=== PATIENT | male | born 1935 | race Caucasian/White ===

== ENCOUNTER 2016-09-08 10:17 | Inpatient (IN) ==
--- NOTE | 2016-09-07 22:08 | Discharge Summary ---
<Marilu Naqvi L - Last Filed: 09/07/16 22:06> - Discharge Diagnosis (1) Left rotator cuff tear arthropathy Priority: Primary Status: Acute (2) HTN (hypertension) Priority: Secondary Status: Acute Qualifiers: Hypertension type: essential hypertension Qualified Code(s): I10 - Essential (primary) hypertension - Discharge Medications Home Medications: OxyCODONE Immed Rel [Roxicodone 5 MG] 5 - 10 mg PO Q6HR PRN #40 tablet 09/07/16 [Rx] Albuterol Sulfate [Albuterol Inhaler] 2 puff IH Q6HR PRN 09/08/16 [History] Allopurinol [Zyloprim 100 MG] 100 mg PO DAILY 09/08/16 [History] Aspirin 325 mg PO DAILY 09/08/16 [History] Cholecalciferol (D-3) [Vitamin D] 1,000 unit PO DAILY 09/08/16 [History] Cyanocobalamin (Vitamin B-12) [Vitamin B12] 1,000 mcg PO DAILY 09/08/16 [History ] Escitalopram [Lexapro] 10 mg PO DAILY 09/08/16 [History] Gabapentin [Neurontin] 100 mg PO TID 09/08/16 [History] HYDROcodone/Acet 10/325 mg [[place] 10-325 mg] 1 tab PO Q6HR PRN 09/08/16 [History ] Losartan [Cozaar] 25 mg PO DAILY 09/08/16 [History] Multivits,Ca,Min/Iron/FA/Lycop [Centrum Men's Tablet] 1 tab PO DAILY 09/08/16 [ History] Naproxen [Naprosyn] 500 mg PO BID 09/08/16 [History] Nitroglycerin [Nitrostat] 0.4 mg SL AD PRN 09/08/16 [History] Potassium Chloride [Klor-Con 10] 10 meq PO BID 09/08/16 [History] Simvastatin [Zocor] 10 mg PO QPM 09/08/16 [History] Allergies/Adverse Reactions: Allergies meperidine [From Demerol] Adverse Reaction (Verified 09/08/16 10:51) Hallucinating Primary care physician: Chandu Sams - Patient Status Disposition: Home, Self-Care Condition: Good - Discharge Instructions Follow Up With: Chandu Sams DO [Primary Care Provider] - - Hospital Course Hospital course: Mr. Agrawal is a 80 year old male - Time Spent with Patient Total time spent providing and/or coordinating discharge services: <Travon Pal - Last Filed: 09/09/16 06:29> Date of Encounter: 09/09/16 Time of Encounter: 06:29 - Discharge Diagnosis (1) Left rotator cuff tear arthropathy Priority: Primary Status: Acute (2) HTN (hypertension) Priority: Secondary Status: Acute Qualifiers: Hypertension type: essential hypertension Qualified Code(s): I10 - Essential (primary) hypertension Primary care physician: Chandu Sams - Patient Status Functional capacity at discharge: independent ambulation Overall status at discharge: patient is progressing back to baseline - Hospital Course Hospital course: Mr. Agrawal is a 80 year old male The patient had an uneventful postoperative course. They received antibiotics and physical therapy and were discharged in stable condition. There will follow -up in the office in 2 weeks. - Time Spent with Patient Total time spent providing and/or coordinating discharge services:
--- NOTE | 2016-09-08 11:21 | History & Physical Report ---
Date of Encounter: 09/08/16 Time of Encounter: 11:20 24 Hour HP Update - Instructions Instructions: If the History and Physical is less than 30 days old and was completed prior to A.M. admission and or procedure and has NOT been updated on calendar day of procedure please complete this update prior to performing procedure. - Update Patient reports changes in Medical Condition: No Changes in assessment/condition: No Changes in Medication: No Preop tests/diagnostics Reviewed: Yes Surgery Remains Indicated: Yes Consent for Planned Operative Procedure(s) Verified: Yes - Pre-Operative Checklist Preoperative Checklist Indicated: No Prophylactic Antibiotic Ordered: Yes Is VTE Prophylaxis Indicated?: Yes
[2016-09-08] MEDS ORDERED: CeFAZolin Pre 2,000 MG/100 ML 2,000 MG/100 ML BAG IVPB ONE (11:55)
[2016-09-08] MEDS ORDERED: Lidocaine -MPF 1% 2 ML VIAL ID ONE (11:55)
[2016-09-08] MEDS ORDERED: Ringers Solution, Lactated 1,000 ML IVC SCH ×2 (12:00→17:10)
[2016-09-08] MEDS ORDERED: Famotidine 20 MG/2 ML VIAL IVP ONE (12:05)
[2016-09-08] MEDS ORDERED: Albuterol 2.5 MG/3 ML NEBULIZER IH ONE ×2 (12:24→15:40)
--- NOTE | 2016-09-08 12:24 | Anesthesia Evaluation PreOp ---
Date of Encounter: 09/08/16 Time of Encounter: 12:20 - Past History Planned Operation: Left Total Shoulder Replacement Reverse Ball Cardiac History: HTN, Hyperlipidemia Pulmonary History: Former smoker, COPD REGIONAL ACCOUNT EXECUTIVE History: Denies Any Significant HX Other Medical History: Renal (CKD) Anesthesia History: No Prior Anesthetic Complications Alcohol Use: none Drug use: none Medications and Allergies OxyCODONE Immed Rel [Roxicodone 5 MG] 5 - 10 mg PO Q6HR PRN #40 tablet 09/07/16 [Rx] Albuterol Sulfate [Albuterol Inhaler] 2 puff IH Q6HR PRN 09/08/16 [History] Allopurinol [Zyloprim 100 MG] 100 mg PO DAILY 09/08/16 [History] Aspirin 325 mg PO DAILY 09/08/16 [History] Cholecalciferol (D-3) [Vitamin D] 1,000 unit PO DAILY 09/08/16 [History] Cyanocobalamin (Vitamin B-12) [Vitamin B12] 1,000 mcg PO DAILY 09/08/16 [History ] Escitalopram [Lexapro] 10 mg PO DAILY 09/08/16 [History] Gabapentin [Neurontin] 100 mg PO TID 09/08/16 [History] HYDROcodone/Acet 10/325 mg [[place] 10-325 mg] 1 tab PO Q6HR PRN 09/08/16 [History ] Losartan [Cozaar] 25 mg PO DAILY 09/08/16 [History] Multivits,Ca,Min/Iron/FA/Lycop [Centrum Men's Tablet] 1 tab PO DAILY 09/08/16 [ History] Naproxen [Naprosyn] 500 mg PO BID 09/08/16 [History] Nitroglycerin [Nitrostat] 0.4 mg SL AD PRN 09/08/16 [History] Potassium Chloride [Klor-Con 10] 10 meq PO BID 09/08/16 [History] Simvastatin [Zocor] 10 mg PO QPM 09/08/16 [History] Allergies meperidine [From Demerol] Adverse Reaction (Verified 09/08/16 10:51) Hallucinating - Meds/Allergy Pre-op Review Medications Reviewed: Yes Allergies Reviewed: Yes Beta Blockers on Current Med List: No Anesthesia Results - Labs Laboratory Tests 08/27/16 08/27/16 11:25 11:35 Hgb 14.1 Hct 43.6 Plt Count 249 Sodium 141 Potassium 4.6 H BUN 32 H Creatinine 1.57 H - Imaging EKG: report reviewed (Sinus Trevor First Degree Block) Anesthesia Exam O2 Sat Height 1.75 m Height 1.75 m Height 1.75 m Weight 101.605 kg Weight 101.605 kg Weight 101.605 kg O2 Sat by Pulse Oximetry 94 Vital Signs Temp Pulse Resp BP Pulse Ox 97.6 F 49 18 185/84 94 L 09/08/16 10:47 09/08/16 10:47 09/08/16 10:47 09/08/16 10:47 09/08/16 10:47 Height: 5'11 Weight: 223 lbs NPO (# of Hours): MN Pain Scale: 0 - HEENT Pupil (Motor): Pupils equal, EOMI Mallampati: III Denture Type: Upper: Complete Oral Opening: Less than or equal to 3 - REGIONAL ACCOUNT EXECUTIVE LOC: Oriented REGIONAL ACCOUNT EXECUTIVE Motor: Normal RUE, Normal LUE, Normal RLE, Normal LLE, Normal Face REGIONAL ACCOUNT EXECUTIVE Sensory: Normal: RUE, LUE, RLE, LLE, Face - Cardiac Rhythm: Regular Murmur: None JVD: No Carotid Bruit: No - Pulmonary Breath Sounds: bilateral Clear Respiratory Effort: Symmetrical Anesthesia Assess/Plan ASA Score: 3 (HTN COPD) Modified [place] Scale for Level of Consciousness: Cooperative, oriented, and tranquil Anesthetic Plan: General, Regional Monitoring Plan: Standard Monitors Recovery Plan: PACU (Discussed GA and RA, agrees to proceed)
[2016-09-08] MEDS ORDERED: *HR* FentaNYL (PF) 100 MCG/2 ML VIAL ONE (13:20)
[2016-09-08] MEDS ORDERED: *HR* Propofol 200 MG/20 ML VIAL IVP ONE (13:20)
[2016-09-08] MEDS ORDERED: *HR* Midazolam HCl 2 MG/2 ML VIAL ONE (13:20)
[2016-09-08] MEDS ORDERED: Dexamethasone 4 MG/ML VIAL ONE (13:21)
[2016-09-08] MEDS ORDERED: Lidocaine -MPF 2% 2 ML VIAL ONE (13:21)
[2016-09-08] MEDS ORDERED: Lidocaine -MPF 4% 5 ML AMPUL ONE (13:21)
[2016-09-08] MEDS ORDERED: Ondansetron 4 MG/2 ML VIAL ONE (13:21)
[2016-09-08] MEDS ORDERED: *HR* Rocuronium Bromide 50 MG/5 ML VIAL ONE (13:21)
[2016-09-08] MEDS ORDERED: *HR* Succinylcholine 200 MG/10 ML VIAL IVP ONE (13:21)
[2016-09-08] MEDS ORDERED: ROPIVACAINE HCL/PF 0.5% 30 ML VIAL ONE (14:01)
[2016-09-08] MEDS ORDERED: Bupivacaine/Clonidine Syringe 1 EACH SYRINGE ONE (14:02)
--- NOTE | 2016-09-08 14:19 | Anesthesia Procedures ---
Date of Encounter: 09/08/16 Time of Encounter: 14:17 Procedures: Anesthesia - Nerve Block Procedure Date: 09/08/16 Time: 14:17 Allergies/Adv Reactions: Allergies meperidine [From Demerol] Adverse Reaction (Verified 09/08/16 10:51) Hallucinating Pre-op Diagnosis: left rotator cuff arthropathy Surgical Procedure: left total shoulder reverse ball Checklist: Correct Patient Identifier, Correct procedure, History checked Correct side: Left Blood Thinner: No Monitor Applied: EKG, BP, Pulse Oximetry Supplemental Oxygen via Nasal Cannula (L/min): 2 Sedation: Fentanyl (mcg): 100 Indication: Post Op Analgesia Block Type: Supraclavicular Catheter placed: No Sterile Technique: Yes Ultrasound used: Yes Anatomy identified: Yes Visual spread of Local: Yes Neuro Stimulation: No Blood on Needle Aspiration: No Smooth Injection of Local: Yes Pain with Injection of Local: No Prep: Chlorhexadine Needle: 22 x 50 mm Stimuplex Local: 0.25% Bupivicaine w/Clonidine 20 mcg/cc (10cc), Ropivacaine (0.5% 20cc) Volume (cc): 30 Number of Attempts: 1 Complications: None/effective block
[2016-09-08] MEDS ORDERED: EPHEDrine 50 MG/ML VIAL ONE (14:58)
[2016-09-08] MEDS ORDERED: *HR* HYDROmorphone (PF) 1 MG/ML SYRINGE IVP PRN (15:12)
--- NOTE | 2016-09-08 15:20 | Orthopedic Operative Note ---
Date of procedure: 09/08/16 Pre-op diagnosis: Left shoulder cuff tear arthropathy Post-op diagnosis: same Procedure: Procedure: Left Total Shoulder Replacment Reverse, biceps tenodesis Estimated blood loss: 100 cc Hardware:Arthrex large glenoid baseplate, 2 4.5 screws. 1 6.5 screw, 42 lateral glenosphere, 12 humeral stem, 9 metal 3 Nichelle Exam Under anesthesia: Restricted motion all planes Procedural Notes: Ray for arthritic changes humeral head and glenoid socket tear supraspinatus tendon Operative procedure: The patient was brought to the operating room and placed on the operating room table. After general anesthesia was administered the operative shoulder was examined. Findings were noted. The patient was placed in the modified beachchair position. All pressure points were padded appropriately. And the head was stabilized in the neutral position. The operative extremity was prepped and draped in the sterile surgical fashion. The patient received IV antibiotics prior to skin incision. A standard deltopectoral approach was made to the operative shoulder. Incision was made to the skin and subcutaneous tissue,hemo stasis was obtained with Bovie cautery. Using careful blunt dissection the cephalic vein was identified and mobilized medially. The deltopectoral interval was developed and the clavipectoral fascia was incised. The subscap was released off the lesser tuberosity and tagged with #2 FiberWire suture. The humerus was dislocated patient noted to have a tear supraspinatus tendon, also 4 arthritic changes humeral head and the humeral cut was made along the anatomic neck. Anterior and posterior Bankart retractors were placed to expose the glenoid. Patient noted to have grade 4 arthritic changes of the glenoid socket. The glenoid guide was seated and the centering hole was made. It was reamed with the appropriate reamer. The large baseplate was seated and secured with (2) 4.5 screws and one 6.5 screw. The baseplate was irrigated and dried and the 42 lateral Glenosphere was seated and secured with the Emrcado taper. The Mercado taper was tested and found to be secure the humerus was redislocated and prepared with the diaphyseal reamers, followed by a broaching process up to the appropriate size 12 in the patient's anatomic version. The metaphyseal reamer was then utilized. Trial reduction found the shoulder to be relocatable. Trial components were removed and drill holes were placed in the lesser tuberosity. They were filled with #5 FiberWire suture incorporating the biceps tendon. These sutures were used for a biceps tenodesis the subscap was irrepairable. The appropriate 12 stem was impacted in place in the patient's anatomic version. Trial reduction found the shoulder to be relocatable and stable with the appropriate 9 metal, 3 Nichelle Trial component was removed and the real 9 metal 3 Nichelle was seated and secured the shoulder was reduced. The shoulder had excellent motion and excellent stability and no evidence of dislocation. The deep tissue was irrigated with pulse irrigation. The biceps was tenodesed. The deltopectoral interval was closed with a running #1 PDS suture, subcutaneous tissue was irrigated and closed with 0 PDS suture, the skin was closed with Dermabond. The patient was placed in a sterile dressing, abduction brace and extubated. The patient was then transferred to the recovery room in stable condition. Anesthesia: JUAQUIN Surgeon: Travon Pal Aircraft Delivery Checker: Marilu Naqvi Condition: stable Disposition: PACU
[2016-09-08] MEDS ORDERED: Albuterol 2.5 MG/3 ML NEBULIZER ONE (15:43)
--- NOTE | 2016-09-08 16:21 | Anesthesia Evaluation Post Op ---
Date of Encounter: 09/08/16 Time of Encounter: 16:10 - Vital Signs Vital Signs: Vital Signs/O2 Sat/Glucose, Most Current Temp Pulse Resp BP Pulse Ox 09/08/16 16:04 97.3 F L 50 20 151/83 96 09/08/16 15:55 50 20 141/83 95 09/08/16 15:45 51 20 149/93 96 09/08/16 15:40 52 16 157/79 94 L 09/08/16 15:35 97.0 F L 53 14 140/82 95 09/08/16 14:19 51 16 169/86 94 L 09/08/16 14:17 50 16 171/110 93 L 09/08/16 14:00 49 16 165/80 94 L - Lungs Lungs: Clear Ascult./Percussion - Airway Airway: Non-obstructed - Cardiovascular Regular Rate - Mental Status Mental Status: Alert & Oriented, Answers Appropriately - Pain Pain Scale: 0 - Nausea Vomiting Nausea Vomiting: Not Present - Hydration Hydration: Ice chips - Discharge PostOp Status: Transfer Patient to floor
[2016-09-08 16:33] LABS: Hematocrit 44.4 % (37.5-50.1); Hemoglobin 14.8 g/dL (12.9-16.9)
[2016-09-08] MEDS ORDERED: MOM Conc 10 ML UD.LIQ PO PRN (17:10)
[2016-09-08] MEDS ORDERED: Temazepam 15 MG CAPSULE PO PRN (17:10)
[2016-09-08] MEDS ORDERED: Sennosides 8.6 MG TABLET PO PRN (17:10)
[2016-09-08] MEDS ORDERED: Ondansetron 4 MG/2 ML VIAL IVP PRN (17:10)
[2016-09-08] MEDS ORDERED: Nitroglycerin 0.4 MG TAB.SUBL SL PRN (17:10)
[2016-09-08] MEDS ORDERED: Naloxone 0.4 MG/ML INJ IVP PRN (17:10)
[2016-09-08] MEDS ORDERED: Acetaminophen 325 MG TABLET PO PRN (17:10)
[2016-09-08] MEDS ORDERED: *HR* OxyCODONE Immed Rel 5 MG TABLET PO PRN (17:10)
[2016-09-08] MEDS: Gabapentin 100 MG CAPSULE PO SCH ×2 (17:59→20:06)
[2016-09-08] MEDS: *HR* Enoxaparin 30 MG/0.3 ML SYRINGE SQ SCH (17:59)
[2016-09-08] MEDS ORDERED: *HR* Enoxaparin 30 MG/0.3 ML SYRINGE SQ SCH (18:00)
[2016-09-09] MEDS: ceFAZolin 2,000 MG in D5% in Water 100 ML IVPB SCH ×2 (00:48→06:02)
[2016-09-09 05:55] LABS: Hematocrit 40.9 % (37.5-50.1); Hemoglobin 13.3 g/dL (12.9-16.9)
[2016-09-09] MEDS: *HR* Enoxaparin 30 MG/0.3 ML SYRINGE SQ SCH ×2 (06:01→18:18)
--- NOTE | 2016-09-09 06:30 | Orthopedics Progress Note ---
Date of Encounter: 09/09/16 Time of Encounter: 06:29 - Assessment and Plan (1) Left rotator cuff tear arthropathy Current Visit: Yes Status: Acute (2) HTN (hypertension) Current Visit: Yes Status: Acute Qualifiers: Hypertension type: essential hypertension Qualified Code(s): I10 - Essential (primary) hypertension Subjective Interval history: Patient was seen this morning doing well without complaints. Afebrile vital signs stable. Operative extremity: Neurovascularly intact Dressing clean dry and intact Calves nontender Assessment and plan: Continue with postoperative care Discharge today Objective Vital signs: Vital Signs Temp Pulse Resp BP Pulse Ox 09/09/16 04:34 97.6 F 49 19 117/66 95 09/09/16 00:16 98.6 F 53 14 121/66 94 L 09/08/16 19:20 56 16 166/76 91 L 09/08/16 18:05 52 16 146/67 92 L 09/08/16 17:35 52 16 147/68 93 L 09/08/16 17:23 97.3 F L 51 15 153/82 91 L 09/08/16 16:04 97.3 F L 50 20 151/83 96 09/08/16 15:55 50 20 141/83 95 09/08/16 15:45 51 20 149/93 96 09/08/16 15:40 52 16 157/79 94 L 09/08/16 15:35 97.0 F L 53 14 140/82 95 09/08/16 14:19 51 16 169/86 94 L 09/08/16 14:17 50 16 171/110 93 L 09/08/16 14:00 49 16 165/80 94 L 09/08/16 10:47 97.6 F 49 18 185/84 94 L Intake and Output 09/08/16 09/08/16 09/09/16 15:59 23:59 07:59 Intake Total 100 / 100 240 / 240 300 / 300 Output Total 100 / 100 425 / 425 700 / 700 Balance 0 / 0 -185 / -185 -400 / -400 Intake: IV Fluids 100 / 100 100 / 100 Ancef 2,000 MG In 100 / 100 Dextrose 5% 100 ML @ 200 mls/hr IVPB Q8H [facility] Rx#: [id number] Ancef Premix 2,000 MG/100 100 / 100 ML 2,000 mg In 100 ml @ 200 mls/hr IVPB PREOP ONE Rx#:[id number] Oral 240 / 240 200 / 200 Output: Urine 425 / 425 700 / 700 Estimated Blood Loss 100 / 100 Other: Weight 101.605 kg - Labs CBC & BMP: 09/09/16 05:30 - VTE Documentation of Mechanical Device: Venous foot pump, device Consult Discharge Plan - Plan Referrals: Chandu Sams DO [Primary Care Provider] -
[2016-09-09] MEDS: Gabapentin 100 MG CAPSULE PO SCH ×3 (08:59→20:22)
[2016-09-09] MEDS: Cholecalciferol (D-3) 1,000 UNIT TABLET PO SCH (08:59)
[2016-09-09] MEDS: Cyanocobalamin (B-12) 1,000 MCG TABLET PO SCH (08:59)
[2016-09-09] MEDS: Multivit/Ca/Min/Fe/FA 1 TAB TABLET PO SCH (08:59)
[2016-09-09] MEDS: Aspirin 325 MG TABLET PO SCH (09:00)
[2016-09-09] MEDS: *HR* OxyCODONE Immed Rel 5 MG TABLET PO PRN ×3 (09:02→18:19)
[2016-09-09] MEDS: *HR* HYDROmorphone (PF) 1 MG/ML SYRINGE IVP PRN ×2 (12:07→20:23)
[2016-09-10] MEDS: *HR* OxyCODONE Immed Rel 5 MG TABLET PO PRN ×2 (01:00→07:50)
[2016-09-10] MEDS: *HR* Enoxaparin 30 MG/0.3 ML SYRINGE SQ SCH ×2 (04:38→17:48)
[2016-09-10 05:44] LABS: Hematocrit 38.7 % (37.5-50.1); Hemoglobin 12.4 g/dL (12.9-16.9)
--- NOTE | 2016-09-10 06:34 | Orthopedics Progress Note ---
Date of Encounter: 09/10/16 Time of Encounter: 06:34 - Assessment and Plan (1) Left rotator cuff tear arthropathy Current Visit: Yes Status: Acute (2) HTN (hypertension) Current Visit: Yes Status: Acute Qualifiers: Hypertension type: essential hypertension Qualified Code(s): I10 - Essential (primary) hypertension Subjective Interval history: Patient was seen this morning doing well without complaints. Afebrile vital signs stable. Operative extremity: Neurovascularly intact Dressing clean dry and intact Calves nontender Assessment and plan: Continue with postoperative care Discharge today Objective Vital signs: Vital Signs Temp Pulse Resp BP Pulse Ox 09/10/16 05:35 98.5 F 90 16 121/73 91 L 09/10/16 00:56 98.2 F 70 17 133/73 93 L 09/09/16 20:33 92 L 09/09/16 19:37 98.5 F 66 15 110/68 92 L 09/09/16 14:52 97.8 F 64 116/67 91 L 09/09/16 11:15 97.6 F 52 18 99/49 93 L 09/09/16 07:04 97.6 F 50 18 124/71 94 L Intake and Output 09/09/16 09/09/16 09/10/16 15:59 23:59 07:59 Intake Total 100 / 100 250 / 250 Balance 100 / 100 250 / 250 Intake: Oral 100 / 100 250 / 250 - Labs CBC & BMP: 09/10/16 05:03 Labs: Abnormal lab results Hgb 12.4 g/dL (12.9-16.9) L 09/10/16 05:03 - VTE Documentation of Mechanical Device: Venous foot pump, device Consult Discharge Plan - Plan Additional Instructions: Discharge Instructions: Total Shoulder Please call [facility] ([phone]), your Primary Care Physician, or report to the Emergency Room if you have any of the following symptoms: Nausea, vomiting, fever greater that 101.5, swelling, chest pain, shortness of breath, increased pain/redness/drainage/odor for your incision site, numbness/ tingling, or any other concerning symptoms. ACTIVITY: Always keep your arm in the sling. Do not raise your arm away from your body. Do not use your arm to help with getting in or out of bed. No weight bearing permitted. Only perform those exercises given to you by your therapist. MEDICATIONS: Upon discharge resume your home medications. Take all the medications as prescribed. Take a stool softener if taking narcotic pain medications. Stool softeners are only effective if you drink enough fluids. Drink 6-8 glass of water or fluids a day, unless this is not allowed for another health problem. Despite using stool softeners, if you haven't had a bowel movement in 3 days, please switch to a gentle laxative. Gentle laxatives are sold over the counter. You should have a bowel movement within 24 hours, if not call the office. You will be discharged from the hospital with a prescription for pain medication. You are encouraged to decrease the use of narcotic pain medication as tolerated. Should you require a refill, please call the office. [facility] prescribes narcotic pain medication for only 4-6 weeks after surgery. If you require pain medication beyond this time period, you may be referred to your Primary Care Physician or to the Pain Clinic for further evaluation. Plan ahead for refills on pain medication as many narcotics either need to be picked up at the office or mailed. It is best to call 48-72 hours in advance of needing a prescription refill so you don't run out of medication. To help control the post-operative pain, you may take NSAIDs (Aleve,Advil, Motrin, ibuprofen, naprosyn) or Tylenol as prescribed on the bottle in addition to the pain medication. ANTICOAGULATION (blood thinners): Continue your Aspirin, Lovenox or Coumadin as prescribed to help prevent a blood clot in the leg or in the lungs. As long as your incision remains dry and you tolerate the NSAIDs (Aleve, Advil, Motrin, ibuprofen, naprosyn), it is OK to use the NSAIDS while you are taking your anticoagulation medication. Should your incision start to drain, stop the NSAID and contact our office. Common symptoms of blood clot in the legs include: localized pain, swelling, calf tenderness, redness or discoloration of the skin. Blood clot in the lung symptoms include: shortness of breath, rapid pulse, sweating, and chest pain that worsens with deep breathing, coughing up blood, lightheadedness, and feelings of anxiety. If you experience any of these symptoms notify your physician immediately, go to the emergency room, or if having trouble breathing , call 911. WOUND CARE: Leave the dressing on for 7 days. You may change the dressing if it becomes saturated greater than 50%. You can shower but not a tub bath or submerge your incision in water. Wash your hands with antibacterial soap, rinse and dry prior to any wound care. If you have yonny the visiting nurse or rehab facility can remove the stapes 10-14 days after surgery and place steri -strips across the wound. Leave the steri-strips in place until they fall off on their won. You may let water from the shower run on top of the steri- stirips. If you do not have a visiting nurse or rehab facility, you will need to return to the office at 10-14 days for the yonny to be removed. FOLLOW-UP: Please follow up with your surgeon in the orthopedic clinic, as scheduled Referrals: Travon Pal MD [Partnered Physician] - 10/07/16 10:30 am Marilu Naqvi PAC [Physician Batting Machine Operator] - 09/18/16 2:30 pm Chandu Sams DO [Primary Care Provider] -
[2016-09-10] MEDS: Gabapentin 100 MG CAPSULE PO SCH ×2 (07:48→17:46)
[2016-09-10] MEDS: Aspirin 325 MG TABLET PO SCH (07:48)
[2016-09-10] MEDS: Cyanocobalamin (B-12) 1,000 MCG TABLET PO SCH (07:49)
[2016-09-10] MEDS: Multivit/Ca/Min/Fe/FA 1 TAB TABLET PO SCH (07:49)
[2016-09-10] MEDS: Cholecalciferol (D-3) 1,000 UNIT TABLET PO SCH (07:49)
[2016-09-10 15:43] VITALS: BP 101/54
== END 2016-09-10 19:55 | disposition home or self-care (01) | DRG 483 ==
LOC: SAMDAY 10:17 → 3NENU 17:03
PROVIDERS: ADMIT Orthopaedic Surgery; ATTEND Orthopaedic Surgery